=== PATIENT | male | born 1995 | race Caucasian/White ===

== ENCOUNTER 2025-05-06 18:22 | Emergency (ER) | payer BC, SELFPAY ==
--- OUTSIDE RECORDS SUMMARY | 2025-04-23 18:44 | XMS_ITS | Encounter Summary ---
Author Organization [facility] Address [address] [place] [id number] Care Team Providers Care Commercial Appraiser Name Role Phone Provider, No Known Primary Care Provider Unavail able Reason for Visit * Reason Comments Post-op Problem Encounter Details Date Type Department Care Team (Late st Contact Info) Description 04/23/2025 7:44 PM EDT - 04/23/2025 10:33 PM EDT Emergency [facility] EMERGENCY DEPARTMENT [address] [facility] [address] Ottoniel Nava MD [address] [place], [place] [id number] Right testicular pain (Primary Dx); Scrotal swelling; History of vasectomy; Bilateral hydrocele; Right varicocele Discharge Disposition: Home or Self Care Social History Tobacco Use Types Packs/Day Years Used Date Smoking Tobacco: Never Assessed Abuse Screen Answer Date Recorded Feels Unsafe at Home or Work/School no 04/23/2025 Feels Threatened by Someone no 04/02 Does Anyone Try to Keep You From Having Contact with Others or Doing Things Outside Your Home? no 04/23/2025 Physical Signs of Abuse Present no 04/23/2025 Sex and Gender Information Value Date Recorded Sex Assigned at Not on file Legal Sex Male 7:41 PM EDT Gender Identity Not on file Sexual Orientation Not on file documented as of this encounter Last Filed Vital Signs Vital Sign Reading Time Taken Comments Blood Pressure 130/98 04/23/2025 10:19 PM EDT Pulse 88 04/23/2025 10:19 PM EDT Temperature 36.5 C (97.7 F) 04/23/2025 7:43 PM EDT Respiratory Rate 16 04/23/2025 10:19 PM EDT Oxygen Saturation 94% 04/23/2025 7:43 PM EDT Inhaled Oxygen Concentration - - Weight 88.5 kg (195 lb) 04/23/2025 7:43 PM EDT Height 180.3 cm (5' 11 ) 04/23/2025 7:43 PM EDT Body Mass Index 27.2 04/23/2025 7:43 PM EDT documented in this encounter Functional Status * Calculated C-SSRS Risk Score (Lifetime/Recent) Answer Date of Assessment Author No Risk Indicated 04/23/2025 7:43 PM EDT Karol Johnson RN * [place] Suicide Severity Rating Scale (Screener/Recent Self-Report) Question Answer Date of Assessment Author 1. Wish to be (Past 1 Month) No 04/23/2025 7:43 PM EDT Supriya Grant RN 2. Non-Specific Active Suici rey Thoughts (Past 1 Month) No 04/23/2025 7:43 PM EDT Karol Grant RN 6. Suicidal Behavior (Lifetime) No 7:43 PM EDT Karol Grant RN documented as of this encounter Discharge Instructions * Discharge Instructions* Makayla Pickens PA-C - 04/23/2025 10:18 PM EDT ER evaluation was reassuring. CBC and chemistries were within normal limits and urinalysis revealedno evidence of infectious process. Testicular ultrasound revealed no concerns of postoperative infection after recent vasectomy. Patient did have small bilateral hydroceles and a right sided varicocele. We printed off information regarding these findings, which is unrelated to recent vasectomy. Continue to wear briefs and cool compresses as needed. Recommend resting the next day or 2 and no extensive standing or walking. Contact Dr. Madrigal's office for close follow-up. Continue with ibuprofen and [place] as prescribed. Return to the ER if worsening symptoms. * Attachments The following attachments cannot be sent through Care Everywhere. * Varicocele (Barbadian) * Fluid Build-Up in the Scrotum (Hydrocele) in Adults: What to Know (Barbadian) documented in this encounter ED Notes * Makayla Pickens PA-C - 04/23/2025 8:01 PM EDT EMERGENCY DEPARTMENT ENCOUNTER Name: Garett Albarado Date of encounter: 04/23/2025 PCP: Provider, No Known : 1995 Room Number: 26SF/26 HARSHAL Provider Statement: Patient or patient field sales representative verbalized consent for the use of AmbientListening during the visit with Makayla Pickens PA-C for chart documentation. 04/23/2025 20:01 EDT Review of prior external notes (non-ED) -and- Review of prior external test results outside of thisencounter: No previous records in [facility] to review HPI: Historians: Patient, Spouse Garett Albarado is a 30 y.o. male who presents for evaluation of Pain/swelling to right testicle/scrotum after recent vasectomy per Dr. Madrigal 6 days ago. Patient says he had local anesthesia and had significant pain after the vasectomy. He says that he has been applying cool compresses and taking ibuprofen. He has only had 4-5 [place] 5 mg tablets. He continues to report right testicular/scrotal pain with some mild swelling. He feels a pulling sensation . He says that pain radiates up into his right groin. There has not been any fever, chills, myalgias, or nausea/vomiting. He denies any dysuria, urgency, or frequency. He states that he has been back to work for the last 3 days and he walks frequently throughout the day. 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 He reports that he is frustrated because he was not really given any instructions after his vasectomy. He has been wearing briefs anddoing all the things that he knows that he should do, but he is still having significant pain. He does not have any follow-up for vasectomy with Dr. Madrigal. He called his office several times today and did not hear back. He denies any significant past medical history. No other concerns at this time. Review of Systems Constitutional: Negative. Negative for activity change, appetite change, chills, fatigue and fever. Respiratory: Negative. Cardiovascular: Negative. Gastrointestinal: Positive for abdominal pain (Mild suprapubic discomfort on the right). Negative for diarrhea, nausea and vomiting. Genitourinary: Positive for scrotal swelling (Right sided) and testicular pain (Right sided pain after recent vasectomy). Negative for flank pain, frequency and urgency. 6 days postop from vas ectomy per Dr. Mares, urology. Patient reports persistent right sided scrotal pain with mild swelling. No induration, erythema, or warmth. No urinary changes. Musculoskeletal: Negative. Negative for back pain. Skin: Negative for color change and wound. No no confluent erythema or warmth to the right scrotum. Patient feels like it is swollen compared to the left scrotum. Neurological: Negative. All other systems reviewed and are negative. PAST MEDICAL HISTORY History reviewed. No pertinent past medical history. PAST SURGICAL HISTORY History reviewed. No pertinent surgical history. FAMILY HISTORY No family history on file. SOCIAL HISTORY Social History Socioeconomic History Marital status: ALLERGIES Allergies Allergen Reactions Percocet [Oxycodone-Acetaminophen] Hives PHYSICAL EXAM I have reviewed the triage vital signs and nursing notes. Physical Exam Vitals and nursing note reviewed. Constitutional: General: He is not in acute distress. Appearance: Normal appearance. He is not ill-appearing, toxic-appearing or diaphoretic. Comments: No acute distress. Nontoxic HENT: Head: Normocephalic and atraumatic. Nose: Nose normal. Mouth/Throat: Mouth: Mucous membranes are moist. Eyes: Extraocular Movements: Extraocular movements intact. Conjunctiva/sclera: Conjunctivae normal. Pupils: Pupils are equal, round, and reactive to light. Cardiovascular: Rate and Rhythm: Normal rate and regular rhythm. No extrasystoles are present. Pulses: Normal pulses. Heart sounds: Normal heart sounds. Comments: Regular rate and rhythm. No tachycardia or ectopy Pulmonary: Effort: Pulmonary effort is normal. Breath sounds: Normal breath sounds. Comments: Lungs are clear to auscultation bilaterally Abdominal: General: Bowel sounds are normal. There is no distension. Palpations: Abdomen is soft. Tenderness: There is abdominal tenderness in the suprapubic area. There is no right CVA tenderness,left CVA tenderness, guarding or rebound. Negative signs include Singh's sign, Rovsing's sign, McBurney's sign, psoas sign and obturator sign. Hernia: No hernia is present. There is no hernia in the right inguinal area. Comments: Abdomen soft without distention. Active bowel sounds in all 4 quadrants. Mild tenderness to right suprapubic area near the groin. No evidence of right inguinal hernia. See exam for details on right testicle and scrotal exam. Genitourinary: Testes: Right: Tenderness and swelling present. Mass not present. Epididymis: Right: Normal. Comments: Patient has tenderness to the right scrotum. I do not appreciate any swelling to the right scrotum as compared to the left. There is no induration or confluent erythema. I do see a small absorbable suture from recent vasectomy. Patient does not have any tenderness to the right epididymis.There is no right inguinal hernia. I do not see any concerning features on exam. Musculoskeletal: General: Normal range of motion. Cervical back: Neck supple. Right lower leg: No edema. Left lower leg: No edema. Skin: General: Skin is warm and dry. Comments: See exam for details. Neurological: General: No focal deficit present. Mental Status: He is alert and oriented to person, place, and time. Cranial Nerves: Cranial nerves 2-12 are intact. Sensory: Sensation is intact. Motor: Motor function is intact. Coordination: Coordination is intact. Comments: Neuro intact and nonfocal Psychiatric: Mood and Affect: Mood and affect normal. Speech: Speech normal. Behavior: Behavior is cooperative. Thought Content: Thought content normal. Cognition and Memory: Cognition and memory normal. Judgment: Judgment normal. Comments: Normal mood and affect Results LAB RESULTS Labs from Hospital Encounter 04/23/25 Comprehensive Metabolic Panel Specimen: Blood Result Value Ref Range Glucose 100 (H) 65 - 99 mg/dL BUN 11.6 6.0 - 20.0 mg/dL Creatinine 0.99 0.76 - 1.27 mg/dL Sodium 138 136 - 145 mmol/L Potassium 4.0 3.5 - 5.2 mmol/L Chloride 103 98 - 107 mmol/L CO2 25.1 22.0 - 29.0 mmol/L Calcium 9.1 8.6 - 10.5 mg/dL Total Protein 6.3 6.0 - 8.5 g/dL Albumin 4.1 3.5 - 5.2 g/dL ALT (SGPT) 58 (H) 1 - 41 U/L AST (SGOT) 41 (H) 1 - 40 U/L Alkaline Phosphatase 78 39 - 117 U/L Total Bilirubin 0.4 0.0 - 1.2 mg/dL Globulin 2.2 gm/dL A/G Ratio 1.9 g/dL BUN/Creatinine Ratio 11.7 7.0 - 25.0 Anion Gap 9.9 5.0 - 15.0 mmol/L eGFR 105.1 >60.0 mL/min/1.73 Urinalysis With Microscopic If Indicated (No Culture) - Urine, Clean Catch Specimen: Urine, Clean Catch Result Value Ref Range Color, UA Yellow Yellow, Straw Appearance, UA Clear Clear pH, UA 5.5 5.0 - 8.0 Specific [place], UA 1.020 1.005 - 1.030 Glucose, UA Negative Negative Ketones, UA Negative Negative Bilirubin, UA Negative Negative Blood, UA Negative Negative Protein, UA Negative Negative Leuk Esterase, UA Negative Negative Nitrite, UA Negative Negative Urobilinogen, UA 0.2 E.U./dL 0.2 - 1.0 E.U./dL CBC Auto Differential Specimen: Blood Result Value Ref Range WBC 6.74 3.40 - 10.80 10*3/mm3 RBC 4.75 4.14 - 5.80 10*6/mm3 Hemoglobin 15.4 13.0 - 17.7 g/dL Hematocrit 44.5 37.5 - 51.0 % MCV 93.7 79.0 - 97.0 fL MCH 32.4 26.6 - 33.0 pg MCHC 34.6 31.5 - 35.7 g/dL RDW 12.2 (L) 12.3 - 15.4 % RDW-SD 42.4 37.0 - 54.0 fl MPV 11.8 6.0 - 12.0 fL Platelets 143 140 - 450 10*3/mm3 Neutrophil % 58.8 42.7 - 76.0 % Lymphocyte % 34.3 19.6 - 45.3 % Monocyte % 5.2 5.0 - 12.0 % Eosinophil % 0.7 0.3 - 6.2 % Basophil % 0.4 0.0 - 1.5 % Immature Grans % 0.6 (H) 0.0 - 0.5 % Neutrophils, Absolute 3.96 1.70 - 7.00 10*3/mm3 Lymphocytes, Absolute 2.31 0.70 - 3.10 10*3/mm3 Monocytes, Absolute 0.35 0.10 - 0.90 10*3/mm3 Eosinophils, Absolute 0.05 0.00 - 0.40 10*3/mm3 Basophils, Absolute 0.03 0.00 - 0.20 10*3/mm3 Immature Grans, Absolute 0.04 0.00 - 0.05 10*3/mm3 nRBC 0.0 0.0 - 0.2 /100 WBC RADIOLOGY US Scrotum & Testicles with doppler Result Date: 04/23/2025 US SCROTUM AND TESTICLES WITH DOPPLER Date of Exam: 04/23/2025 8:15 PM EDT Indication: right testicular pain, swelling, s/p recent vasectomy. Comparison: No comparisons available. Technique: Multiplesonographic images of the scrotum were obtained in transverse and longitudinal planes. Grayscale and color Doppler duplex techniques were utilized. Doppler spectral analysis was performed. Findings: Right hemiscrotum: The testicle is homogeneous in echogenicity. Color flow does not appear unusual. There is a small hydrocele on this side. Epididymis does not appear unusual. A varicocele is suggested on this side. Left hemiscrotum: There is color flow to the testicle. The testicle is homogeneous no congestion density. There is a small hydrocele on this side. Epididymis does not appear unusual. Impression: Impression: 1.Small bilateral hydroceles. 2.Right varicocele suggested. Electronically Signed: Deniz Major MD 04/23/2025 9:36 PM EDT Workstation ID: [id number] ORDERS PLACED DURING THIS VISIT: Orders Placed This Encounter Procedures US Scrotum & Testicles with doppler Comprehensive Metabolic Panel Urinalysis With Microscopic If Indicated (No Culture) - Urine, Clean Catch CBC Auto Differential CBC & Differential MEDICATIONS GIVEN IN ER Medications HYDROcodone-acetaminophen (NORCO) 5-325 MG per tablet 1 tablet (1 tablet Oral Given 04/23/252020) ibuprofen (ADVIL,MOTRIN) tablet 600 mg (600 mg Oral Given 04/23/252020) PROCEDURES Procedures PROGRESS, DATA ANALYSIS, CONSULTS, AND MEDICAL DECISION MAKING All labs, radiology studies, and EKG's have been independently viewed and interpreted by me. Discussion below represents my analysis of pertinent findings related to patient's condition, differentialdiagnosis, treatment plan and final disposition. Differential Diagnoses include but is not limited to: Post-operative pain after vasectomy with increased activity, post-operative infection. ED Scoring Tools: ED Course: ED Course as of 04/23/25 2218 [place] Apr 23, [id number] Pt has been using cool compresses, Ibuprofen, [place] 5mg. Pt has only taken 4-5 [place] in the last [address] Madrigal's office today and couldn't get a response. [FC] 2213 Patient is afebrile. Blood pressure is mildly elevated at 130/104, which could be pain related. CBC and chemistries were essentially normal. ALT was 58 and AST was 41 but alk phos and total bilirubin were normal. Urinalysis revealed no microscopic blood or acute UTI. We proceeded with testicular ultrasound due to significant right testicular pain after recent vasectomy. Ultrasound showed small bilateral hydroceles and right varicocele suggested but there was good blood flow to both testicles and no concerning features. Epididymis did not appear abnormal bilaterally. Reviewed all diagnostic workup with Dr. Nava, ER attending physician. There are no concerning features on today's exam or with diagnostic workup. Recommend patient to continue to wear briefs and cool compresses as neededand recommend decreased walking for the next day or 2 and close recheck with Dr. Madrigal, urologist that performed recent vasectomy. [FC] ED Course User Index [FC] Makayla Pickens PA-C OF 22:18 EDT VITALS: BP - (!) 130/104 HR - 84 TEMP - 97.7 ??F (36.5 ??C) (Oral) O2 SATS - 94% DIAGNOSIS Final diagnoses: Right testicular pain Scrotal swelling History of vasectomy Bilateral hydrocele Right varicocele DISPOSITION ED Disposition ED Disposition Discharge Condition Stable Comment -- Please note that portions of this note were completed with a voice recognition program. Note Disclaimer: At [facility], we believe that sharing information builds trust and better relationships. You are receiving this note because you recently visited [facility]. It is possible you will see health information before a provider has talked with you about it. This kind of information can be easy to misunderstand. To help you fully understand what it means for your health, we urge you to discuss this note with your provider. Makayla Pickens PA-C 04/23/252217 Cosigned by Ottoniel Nava MD at 04/24/2025 11:36 AM EDT Associated attestation - Ottoniel Nava MD - 04/24/2025 11:36 AM EDT SUPERVISE: For this patient encounter, I reviewed the APC's documentation, treatment plan, and medical decision making. Ottoniel Nava MD 04/24/2025 11:36 EDT documented in this encounter Plan of Treatment Not on file documented as of this encounter Procedures Procedure Name Priority Date/Time Associated Diagnosis Comments US SCROTUM AND TESTICLES WITH DOPPLER STAT 04/23/2025 9:15 PM EDT URINALYSIS W/ MICROSCOPIC IF INDICATED (NO CULTURE) STAT 04/23/2025 9:10 PM EDT CBC WITH AUTO DIFFERENTIAL STAT 04/23/2025 8:20 PM EDT CBC AND DIFFERENTIAL STAT 04/23/2025 8:20 PM EDT COMPREHENSIVE METABOLIC PANEL STAT 04/23/2025 8:20 PM EDT documented in this encounter Results * US Scrotum & Testicles with doppler (04/23/2025 9:15 PM EDT) Anatomical Region Laterality Modality Body, Testes Ultrasound 04/23/2025 9:30 PM EDT Impressions 04/23/2025 9:36 PM EDT Impression: 1.Small bilateral hydroceles. 2.Right varicocele suggested. Electronically Signed: Deniz Major MD 04/23/2025 9:36 PM EDT Workstation ID: [id number] Narrative 04/23/2025 9:36 PM EDT US SCROTUM AND TESTICLES WITH DOPPLER Date of Exam: 04/23/2025 8:15 PM EDT Indication: right testicular pain, swelling, s/p recent vasectomy. Comparison: No comparisons available. Technique: Multiple sonographic images of the scrotum were obtained in transverse and longitudinal planes. Grayscale and color Doppler duplex techniques were utilized. Doppler spectral analysis was performed. Findings: Right hemiscrotum: The testicle is homogeneous in echogenicity. Color flow does not appear unusual. There is a small hydrocele on this side. Epididymis does not appear unusual. A varicocele is suggested on this side. Left hemiscrotum: There is color flow to the testicle. The testicle is homogeneous no congestion density. There is a small hydrocele on this side. Epididymis does not appear unusual. Procedure Note Deniz Major MD - 04/23/2025 US SCROTUM AND TESTICLES WITH DOPPLER Date of Exam: 04/23/2025 8:15 PM EDT Indication: right testicular pain, swelling, s/p recent vasectomy. Comparison: No comparisons available. Technique: Multiple sonographic images of the scrotum were obtained intransverse and longitudinal planes. Grayscale and color Doppler duplextechniques were utilized. Doppler spectral analysis was performed. Findings: Right hemiscrotum: The testicle is homogeneous in echogenicity. Color flowdoes not appear unusual. There is a small hydrocele on this side.Epididymis does not appear unusual. A varicocele is suggested on thisside. Left hemiscrotum: There is color flow to the testicle. The testicle ishomogeneous no congestion density. There is a small hydrocele on thisside. Epididymis does not appear unusual. IMPRESSION: Impression: 1.Small bilateral hydroceles. 2.Right varicocele suggested. Electronically Signed: Deniz Major MD 04/23/2025 9:36 PM EDT Workstation ID: [id number] us Ottoniel Nava MD [facility] [place] US ORDERABLES Final Resu lt * Urinalysis With Microscopic If Indicated (No Culture) - Urine, Clean Catch (04/23/2025 9:10 PM EDT) Color, UA Yellow Yellow, Straw 04/23/2025 9:29 PM EDT [facility] Appearance, UA Clear Clear 04/23/2025 9:29 PM EDT [facility] pH, UA 5.5 5.0 - 8.0 04/23/2025 9:29 PM EDT [facility] Specific [place], UA 1.020 1.005 - 1.030 04/23/2025 9:29 PM EDT [facility] Glucose, UA Negative Negative 04/23/2025 9:29 PM EDT [facility] Ketones, UA Negative Negative 04/23/2025 9:29 PM EDT [facility] Bilirubin, UA Negative Negative 04/23/2025 9:29 PM EDT [facility] Blood, UA Negative Negative 04/23/2025 9:29 PM EDT [facility] Protein, UA Negative Negative 04/23/2025 9:29 PM EDT [facility] Leuk Esterase, UA Negative Negative 04/23/2025 9:29 PM EDT [facility] Nitrite, UA Negative Negative 04/23/2025 9:29 PM EDT [facility] Urobilinogen, UA 0.2 E.U./dL 0.2 - 1.0 E.U./dL 04/23/2025 9:29 PM EDT [facility] Urine Urine specimen obtained by clean catch procedure / Unknown Collection / Unknown 04/23/2025 9:10 PM EDT 04/23/2025 9:22 PM EDT Narrative [facility] - 04/23/2025 9:29 PM EDT Urine microscopic not indicated. us Ottoniel Nava MD URINE ORDERABLES Final Resul t [facility]
[address] [place] [address], * (ABNORMAL) CBC Auto Differential (04/23/2025 8:20 PM EDT) [facility] WBC 6.74 3.40 - 10.80 10*3/mm3 04/23/2025 8:33 PM EDT [facility] RBC 4.75 4.14 - 5.80 10*6/mm3 04/23/2025 8:33 PM EDT [facility] Hemoglobin 15.4 13.0 - 17.7 g/dL 04/23/2025 8:33 PM EDT [facility] Hematocrit 44.5 37.5 - 51.0 % 04/23/2025 8:33 PM EDT [facility] MCV 93.7 79.0 - 97.0 fL 04/23/2025 8:33 PM EDT [facility] MCH 32.4 26.6 - 33.0 pg 04/23/2025 8:33 PM EDT [facility] MCHC 34.6 31.5 - 35.7 g/dL 04/23/2025 8:33 PM EDT [facility] RDW 12.2(L) 12.3 - 15.4 % 04/23/2025 8:33 PM EDT [facility] RDW-SD 42.4 37.0 - 54.0 fl 04/23/2025 8:33 PM EDT [facility] MPV 11.8 6.0 - 12.0 fL 04/23/2025 8:33 PM EDT [facility] Platelets 143 140 - 450 10*3/mm3 04/23/2025 8:33 PM EDT [facility] Neutrophil % 58.8 42.7 - 76.0 % 04/23/2025 8:33 PM EDT [facility] Lymphocyte % 34.3 19.6 - 45.3 % 04/23/2025 8:33 PM EDT [facility] Monocyte % 5.2 5.0 - 12.0 % 04/23/2025 8:33 PM EDT [facility] Eosinophil % 0.7 0.3 - 6.2 % 04/23/2025 8:[facility] [address] [facility] Basophil % 0.4 0.0 - 1.5 % 04/23/2025 8:33 PM EDT [facility] Immature Grans % 0.6(H) 0.0 - 0.5 % 04/23/2025 8:33 PM EDT [facility] Neutrophils, Absolute 3.96 1.70 - 7.00 10*3/mm3 04/23/2025 8:33 PM EDT [facility] Lymphocytes, Absolute 2.31 0.70 - 3.10 10*3/mm3 04/23/2025 8:33 PM EDT [facility] Monocytes, Absolute 0.35 0.10 - 0.90 10*3/mm3 04/23/2025 8:33 PM EDT [facility] Eosinophils, Absolute 0.05 0.00 - 0.40 10*3/mm3 04/23/2025 8:33 PM EDT [facility] Basophils, Absolute 0.03 0.00 - 0.20 10*3/mm3 04/23/2025 8:33 PM EDT [facility] Immature Grans, Absolute 0.04 0.00 - 0.05 10*3/mm3 04/23/2025 8:33 PM EDT [facility] nRBC 0.0 0.0 - 0.2 /100 WBC 04/23/2025 8:33 PM EDT [facility] Blood Venipuncture / Unknown 04/23/2025 8:20 PM EDT 04/23/2025 8:30 PM EDT us Ottoniel Nava MD LAB BLOOD ORDERABLES Final R esult [facility]
[address] [place] [address], * (ABNORMAL) Comprehensive Metabolic Panel (04/23/2025 8:20 PM EDT) Glucose 100(H) 65 - 99 mg/dL 04/23/2025 8:57 PM EDT [facility] BUN 11.6 6.0 - 20.0 mg/dL 04/23/2025 8:57 PM T [facility] Creatinine 0.99 0.76 - 1.27 mg/dL 04/23/2025 8:57 PM T [facility] Sodium 138 136 - 145 mmol/L 04/23/2025 8:57 PM T [facility] Potassium 4.0 3.5 - 5.2 mmol/L 04/23/2025 8:57 PM T [facility] Comment:Specimen hemolyzed. Result may be falsely elevated. Chloride 103 98 - 107 mmol/L 04/23/2025 8:57 PM T [facility] CO2 25.1 22.0 - 29.0 mmol/L 04/23/2025 8:57 PM [facility] Calcium 9.1 8.6 - 10.5 mg/dL 04/23/2025 8:57 PM [facility] Total Protein 6.3 6.0 - 8.5 g/dL 04/23/2025 8:57 PM [facility] Albumin 4.1 3.5 - 5.2 g/dL 04/23/2025 8:57 PM [facility] ALT (SGPT) 58(H) 1 - 41 U/L 04/23/2025 8:57 PM [facility] AST (SGOT) 41(H) 1 - 40 U/L 04/23/2025 8:57 PM T [facility] Comment:Specimen hemolyzed. Result may be falsely elevated. Alkaline Phosphatase 78 39 - 117 U/L 04/23/2025 8:57 PM T [facility] Total Bilirubin 0.4 0.0 - 1.2 mg/dL 04/23/2025 8:57 PM [facility] Globulin 2.2 gm/dL 04/23/2025 8:57 PM [facility] Comment:Calculated Result A/G Ratio 1.9 g/dL 04/23/2025 8:57 PM EDT [facility] BUN/Creatinine Ratio 11.7 7.0 - 25.0 04/23/2025 8:57 PM EDT [facility] Anion Gap 9.9 5.0 - 15.0 mmol/L 04/23/2025 8:57 PM EDT [facility] eGFR 105.1 >60.0 mL/min/1.7 3 04/23/2025 8:57 PM EDT [facility] Blood Venipuncture / Unknown 04/23/2025 8:20 PM EDT 04/23/2025 8:30 PM EDT [facility] - 04/23/2025 8:57 PM EDT GFR Categories in Chronic Kidney Disease (CKD) GFR Category GFR (mL/min/1.73) Interpretation G1 90 or greater Normal or high (1) G2 60-89 Mild decrease (1) G3a 45-59 Mild to moderate decrease G3b 30-44 Moderate to severe decrease G4 15-29 Severe decrease G5 14 or less Kidney failure (1)In the absence of evidence of kidney disease, neither GFR category G1 or G2 fulfill the criteria for CKD. eGFR calculation 2020 CKD-EPI creatinine equation, which does not include race as a factor Ottoniel Nava MD LAB BLOOD ORDERABLES Final R esult [facility]
[address] [place] [address], documented in this encounter Visit Diagnoses Diagnosis Right testicular pain- Primary Scrotal swelling Edema of male genital organs History of vasectomy Vasectomy status Bilateral hydrocele Unspecified hydrocele Right varicocele Scrotal varices documented in this encounter Administered Medications Inactive Administered Medications - up to 3 most recent administrations Medication Order MAR Action Action Date Dose Rate Site HYDROcodone-acetaminophen (NORCO) 5-325 MG per tablet 1 tablet 1 tablet, Oral, Once, On Vita 04/23/25 at 2024, For 1 dose, Based on patient request - if ordered for moderate or severe pain, provider allows for administration of a medication prescribed for a lower pain scale. [JAMES] Do not exceed 4 grams of acetaminophen in a 24 hr period. Max dose of 2gm for AST/ALT greater than 120 units/L If given for pain, use the following pain scale: Mild Pain = Pain Score of 1-3, CPOT 1-2 Moderate Pain = Pain Score of 4-6, CPOT 3-4 Severe Pain = Pain Score of 7-10, CPOT 5-8 Given 04/23/2025 8:21 PM EDT 1 tablet ibuprofen (ADVIL,MOTRIN) tablet 600 mg 600 mg, Oral, Once, On Vita 04/23/25 at 2024, For 1 dose, Based on patient request - if ordered for moderate or severe pain, provider allows for administration of a medication prescribed for a lower pain scale. Mucous membrane irritant. Do not crush or chew tablet or capsule unless administered through a feeding tube. If given for pain, use the following pain scale: Mild Pain = Pain Score of 1-3, CPOT 1-2 Moderate Pain = Pain Score of 4-6, CPOT 3-4 Severe Pain = Pain Score of 7-10, CPOT 5-8 Given 04/23/2025 8:21 PM EDT 600 mg documented in this encounter Active and Recently Administered Medications Times are shown in EDT. Scheduled Medication Order 04/21/2025 04/22/2025 04/23/2025 HYDROcodone-acetaminophen (NORCO) 5-325 MG per tablet 1 tablet (COMPLETED) 1 tablet, Oral, Once, On Vita 04/23/25 at 2024, For 1 dose, Based on patient request - if ordered for moderate or severe pain, provider allows for administration of a medication prescribed for a lower pain scale. [JAMES] Do not exceed 4 grams of acetaminophen in a 24 hr period. Max dose of 2gm for AST/ALT greater than 120 units/L If given for pain, use the following pain scale: Mild Pain = Pain Score of 1-3, CPOT 1-2 Moderate Pain = Pain Score of 4-6, CPOT 3-4 Severe Pain = Pain Score of 7-10, CPOT 5-8 2020 (Given - Provid er: Adriana Leyva RN) ibuprofen (ADVIL,MOTRIN) tablet 600 mg (COMPLETED) 600 mg, Oral, Once, On Vita 04/23/25 at 2024, For 1 dose, Based on patient request - if ordered for moderate or severe pain, provider allows for administration of a medication prescribed for a lower pain scale. Mucous membrane irritant. Do not crush or chew tablet or capsule unless administered through a feeding tube. If given for pain, use the following pain scale: Mild Pain = Pain Score of 1-3, CPOT 1-2 Moderate Pain = Pain Score of 4-6, CPOT 3-4 Severe Pain = Pain Score of 7-10, CPOT 5-8 2020 (Given - Provid er: Adriana Leyva RN) documented in this encounter Care Teams Commercial Appraiser Relationship Specialty Start Date End Date Provider, [place] [address] PCP - General 04/23/25 documented as of this encounter
[2025-05-06 18:44] VITALS: BP 147/100; PULSE 86; RESP 18; TEMP 36.8; O2SAT 96; BMI 27.1
--- NOTE | 2025-05-06 18:49 | ECG_ITS ---
APPROVED REPORT Exam: Resting ECG HR:79 bpm ECG Measurements Heart Rate 79 AXES LA 153 P 46 QRSd 97 QRS 64 QT 356 T 51 QTc 390 Conclusion SINUS RHYTHM NORMAL ECG UNCONFIRMED REPORT Normal sinus rhythm. No ST elevation or depression. QTc normal at 390 Electronically signed by : SOURAV SKINNER, 05/07/2025 20:14:39
--- NOTE | 2025-05-06 18:54 | XR_ITS ---
PROCEDURE INFORMATION: Exam: XR Left Shoulder Exam date and time: 05/06/2025 6:58 PM Age: 30 years old Clinical indication: Pain; Shoulder; Left; Additional info: Possible injury, pain stemming into neck, no HX of surgeries TECHNIQUE: Imaging protocol: Radiologic exam of the left shoulder. Views: 2 or more views. COMPARISON: No relevant prior studies available. FINDINGS: Bones/joints: Osseous alignment is normal. No acute fracture. No significant arthritic change. Soft tissues: Normal. IMPRESSION: Negative left shoulder
[2025-05-06 19:07] LABS: Hematocrit 44.3 % (42.0-52.0); Hemoglobin 15.3 g/dL (14.1-18.0); Immature Granulocytes % 0.5 %; Mean Corpuscular HGB Conc 34.5 g/dL (31.8-35.4); Mean Corpuscular Hemoglobin 32.6 pg (27.0-31.2); Mean Corpuscular Volume 94.3 fl (80-94); Nucleated Red Blood Cells % 0 %; Platelet Count 162 K/mm3 (142-424); Red Blood Count 4.70 M/mm3 (4.60-6.20); Red Cell Distribution Width-SD 42.0 fL; White Blood Count 7.7 K/mm3 (4.8-10.8)
--- OUTSIDE RECORDS SUMMARY | 2025-05-06 19:10 | XMS_ITS | Clinical Summary ---
Author Organization [facility] Address [address] [place] [address] Care Team Providers Care Lead Net Software Developer Name Role Phone Provider, No Known Primary Care Provider Unavail able Allergies Active Allergy Reactions Criticality Noted Date Comments Oxycodone-Acetaminophen Hives 04/23/2025 Medications No known medications Encounters Date Type Department Care Team Description 04/23/2025 7:44 PM EDT - 04/23/2025 10:33 PM EDT Emergency [facility] [address] [place] [phone] Ottoniel Nava MD Right testicular pain (Primary Dx); Scrotal swelling; History of vasectomy; Bilateral hydrocele; Right varicocele Discharge Disposition: Home or Self Care 04/23/2025 Travel from Last 3 Months Social History Tobacco Use Types Packs/Day Years [...] on file Sexual Orientation Not on file Last Filed Vital Signs Vital Sign Reading [...] Mass Index 27.2 04/23/2025 7:43 PM EDT Plan of Treatment Health Maintenance Due Date Last Done Comments ANNUAL PHYSICAL 1995 HEPATITIS C SCREENING 1995 INFLUENZA VACCINE 01/30/2025 TDAP/TD VACCINES (2 - Tdap) 08/15/2032 08/15/2022 Pneumococcal Vaccine 0-49 Aged Out No longer eligible based on patient's age to complete this topic Procedures Procedure Name Priority Date/Time Associated Diagnosis Comments US SCROTUM AND TESTICLES WITH DOPPLER STAT 04/23/2025 9:15 PM EDT URINALYSIS W/ MICROSCOPIC IF INDICATED (NO CULTURE) STAT 04/23/2025 9:10 PM EDT CBC AND DIFFERENTIAL STAT 04/23/2025 8:20 PM EDT CBC WITH AUTO DIFFERENTIAL STAT 04/23/2025 8:20 PM EDT COMPREHENSIVE METABOLIC PANEL STAT 04/23/2025 8:20 PM EDT from Last 3 Months Results * US Scrotum & Testicles with doppler (04/23/2025 9:15 PM EDT) Anatomical Region Laterality Modality Body, Testes Ultrasound 04/23/2025 9:30 PM EDT Impressions 04/23/2025 9:36 PM EDT Impression: 1.Small bilateral hydroceles. 2.Right varicocele suggested. Electronically Signed: Deniz Major MD 04/23/2025 9:36 PM EDT Workstation ID: [id number] Narrative 04/23/2025 9:36 PM EDT US SCROTUM [...] MD 04/23/2025 9:36 PM EDT Workstation ID: [id number] us Ottoniel Nava MD [facility] US ORDERABLES Final Resu lt * Urinalysis With Microscopic If Indicated (No Culture) - Urine, Clean Catch (04/23/2025 9:10 PM EDT) Color, UA Yellow Yellow, Straw 04/23/2025 9:29 PM EDT [facility] Appearance, UA Clear Clear 04/23/2025 9:29 PM EDT [facility] pH, UA 5.5 5.0 - 8.0 04/23/2025 9:29 PM EDT [facility] Specific [place], UA 1.020 1.005 - 1.030 04/23/2025 9:29 PM EDT [facility] Glucose, UA Negative Negative 04/23/2025 9:29 PM EDT [facility] Ketones, UA Negative Negative 04/23/2025 9:29 PM EDT [facility] Bilirubin, UA Negative Negative 04/23/2025 9:29 PM EDT [facility] Blood, UA Negative Negative 04/23/2025 9:29 PM EDT [facility] Protein, UA Negative Negative 04/23/2025 9:29 PM EDT [facility] Leuk Esterase, UA Negative Negative 04/23/2025 9:29 PM EDT [facility] Nitrite, UA Negative Negative 04/23/2025 9:29 PM EDT [facility] Urobilinogen, UA 0.2 E.U./dL 0.2 - 1.0 E.U./dL 04/23/2025 9:29 PM EDT [facility] Urine Urine specimen obtained by clean catch procedure / Unknown Collection / Unknown 04/23/2025 9:10 PM EDT 04/23/2025 9:22 PM EDT Narrative [facility] - 04/23/2025 9:29 PM EDT Urine microscopic not indicated. us Ottoniel Nava MD URINE ORDERABLES Final Resul t [facility]
[address] [place] [address], * (ABNORMAL) CBC Auto Differential (04/23/2025 8:20 PM EDT) WBC 6.74 3.40 - 10.80 10*3/mm3 04/23/2025 8:33 PM EDT [facility] RBC 4.75 4.14 - 5.80 10*6/mm3 04/23/2025 8:33 PM EDT [facility] Hemoglobin 15.4 13.0 - 17.7 g/dL 04/23/2025 8:33 PM EDT [facility] Hematocrit 44.5 37.5 - 51.0 % 04/23/2025 8:33 PM EDT [facility] MCV 93.7 79.0 - 97.0 fL 04/23/2025 8:33 PM EDT [facility] MCH 32.4 26.6 - 33.0 pg 04/23/2025 8:33 PM EDT [facility] MCHC 34.6 31.5 - 35.7 g/dL 04/23/2025 8:33 PM EDT [facility] RDW 12.2(L) 12.3 - 15.4 % 04/23/2025 8:33 PM EDT [facility] RDW-SD 42.4 37.0 - 54.0 fl 04/23/2025 8:33 PM EDT [facility] MPV 11.8 6.0 - 12.0 fL 04/23/2025 8:33 PM EDT [facility] Platelets 143 140 - 450 10*3/mm3 04/23/2025 8:33 PM EDT [facility] Neutrophil % 58.8 42.7 - 76.0 % 04/23/2025 8:33 PM EDT [facility] Lymphocyte % 34.3 19.6 - 45.3 % 04/23/2025 8:33 PM EDT [facility] Monocyte % 5.2 5.0 - 12.0 % 04/23/2025 8:33 PM EDT [facility] Eosinophil % 0.7 0.3 - 6.2 % 04/23/2025 8:33 PM EDT [facility] Basophil % 0.4 0.0 - 1.5 % 04/23/2025 8:33 PM EDT [facility] Immature Grans % 0.6(H) 0.0 - 0.5 % 04/23/2025 8:33 PM EDT [facility] Neutrophils, Absolute 3.96 1.70 - 7.00 10*3/mm3 04/23/2025 8:33 PM EDT [facility] Lymphocytes, Absolute 2.31 0.70 - 3.10 10*3/mm3 04/23/2025 8:33 PM EDT [facility] Monocytes, Absolute 0.35 0.10 - 0.90 10*3/mm3 04/23/2025 8:33 PM EDT [facility] Eosinophils, Absolute 0.05 0.00 - 0.40 10*3/mm3 04/23/2025 8:33 PM EDT [facility] Basophils, Absolute 0.03 0.00 - 0.20 10*3/mm3 04/23/2025 8:33 PM EDT [facility] Immature Grans, Absolute 0.04 0.00 - 0.05 10*3/mm3 04/23/2025 8:33 PM EDT [facility] nRBC 0.0 0.0 - 0.2 /100 WBC 04/23/2025 8:33 PM EDT [facility] Blood Venipuncture / Unknown 04/23/2025 8:20 PM EDT 04/23/2025 8:30 PM EDT us Ottoniel Nava MD LAB BLOOD ORDERABLES Final R esult [facility]
[address] [place] [address], * (ABNORMAL) Comprehensive Metabolic Panel (04/23/2025 8:20 PM EDT) [facility] Glucose 100(H) 65 - 99 mg/dL 04/23/2025 8:57 PM EDT [facility] BUN 11.6 6.0 - 20.0 mg/dL 04/23/2025 8:57 PM EDT [facility] Creatinine 0.99 0.76 - 1.27 mg/dL 04/23/2025 8:57 PM T [facility] Sodium 138 136 - 145 mmol/L 04/23/2025 8:57 PM T [facility] Potassium 4.0 3.5 - 5.2 mmol/L 04/23/2025 8:57 PM T [facility] Comment:Specimen hemolyzed. Result may be falsely elevated. Chloride 103 98 - 107 mmol/L 04/23/2025 8:57 PM T [facility] CO2 25.1 22.0 - 29.0 mmol/L 04/23/2025 8:57 PM T [facility] Calcium 9.1 8.6 - 10.5 mg/dL 04/23/2025 8:57 PM [facility] Total Protein 6.3 6.0 - 8.5 g/dL 04/23/2025 8:57 PM [facility] Albumin 4.1 3.5 - 5.2 g/dL 04/23/2025 8:57 PM [facility] ALT (SGPT) 58(H) 1 - 41 U/L 04/23/2025 8:57 PM [facility] AST (SGOT) 41(H) 1 - 40 U/L 04/23/2025 8:57 PM T [facility] Comment:Specimen hemolyzed. Result may be falsely elevated. Alkaline Phosphatase 78 39 - 117 U/L 04/23/2025 8:57 PM T [facility] Total Bilirubin 0.4 0.0 - 1.2 mg/dL 04/23/2025 8:57 PM T [facility] Globulin 2.2 gm/dL 04/23/2025 8:57 PM [facility] Comment:Calculated Result A/G Ratio 1.9 g/dL 04/23/2025 8:57 PM T [facility] BUN/Creatinine Ratio 11.7 7.0 - 25.0 04/23/2025 8:57 PM EDT [facility] Anion Gap 9.9 5.0 - 15.0 mmol/L 04/23/2025 8:57 PM EDT [facility] eGFR 105.1 >60.0 mL/min/1.7 3 04/23/2025 8:57 PM EDT [facility] Blood Venipuncture / Unknown 04/23/2025 8:20 PM EDT 04/23/2025 8:30 PM EDT Narrative [facility] - 04/23/2025 8:57 PM EDT GFR [...] does not include race as a factor us Ottoniel Nava MD LAB BLOOD ORDERABLES Final R esult [facility]
[address] [place] [address], from Last 3 Months Insurance [facility] PPO Care Teams Lead Net Software Developer Relationship Specialty Start Date End Date Provider, [place] [address] PCP - General 04/23/25
--- OUTSIDE RECORDS SUMMARY | 2025-05-06 19:10 | XMS_ITS | Encounter Summary ---
Author Organization [facility] Address [address] [place] [address] Care Team Providers Care Manager Payer Name Role Phone Provider, No Known Primary Care Provider Unavail able Encounter Details Date Type Department Care Team (Latest Contact Info) Description 04/23/2025 Travel Social History Tobacco Use Types Packs/Day Years [...] on file documented as of this encounter Functional Status * Calculated C-SSRS Risk Score (Lifetime/Recent) Answer Date of Assessment Author No Risk Indicated 04/23/2025 7:43 PM EDT Karol Johnson RN * [place] Suicide Severity Rating Scale (Screener/Recent Self-Report) Question Answer Date of Assessment Author 1. Wish to be (Past 1 Month) No 04/23/2025 7:43 PM EDT Supriya Grant RN 2. Non-Specific Active Suici rey Thoughts (Past 1 Month) No 04/23/2025 7:43 PM EDT Karol Grant RN 6. Suicidal Behavior (Lifetime) No 7:43 PM EDT Karol Grant RN documented as of this encounter Plan of Treatment Not on file documented as of this encounter Visit Diagnoses Not on filedocumented in this encounter Care Teams Manager Payer Relationship Specialty Start Date End Date Provider, No Known [place] [phone] PCP - General 04/23/25 documented as of this encounter
[2025-05-06 19:16] LABS: Alanine Aminotransferase 83 U/L (12-78); Albumin Level 4.2 g/dl (3.5-5.0); Albumin/Globulin Ratio 1.4 (1.1-1.8); Alkaline Phosphatase 80 U/L (38-126); Anion Gap 10.6 mEq/L (5-15); Aspartate Amino Transferase 49 U/L (17-59); Bilirubin,Total 0.6 mg/dl (0.2-1.3); Blood Urea Nitrogen 15 mg/dl (9-20); Calcium 9.5 mg/dl (8.4-10.2); Carbon Dioxide 26 mmol/L (22.0-30.0); Chloride 106 mmol/L (98-107); Creatinine Clearance Estimated 123 mL/min (50-200); Creatinine,Serum 1.10 mg/dl (0.66-1.25); Estimated Glomerular Filt Rate 79 ml/min (>60); GFR (African American) 95 ML/MIN (>60); Globulin 3.1 g/dL (1.3-3.2); Glucose 93 mg/dl (74-100); Potassium 3.6 mmoL/L (3.5-5.1); Sodium 139 mmol/L (136-145); Total Protein,Serum 7.3 g/dl (6.3-8.2)
[2025-05-06 19:29] LABS: Troponin I < 0.01 ng/ml (0.00-0.034)
[2025-05-06 19:34] LABS: Microscopic, Urine URINE MICROSCOPIC (MICROSCOPIC)
[2025-05-06 19:39] LABS: Bilirubin,Urine Negative (Negative); Color,Urine YELLOW (Yellow); Glucose,Urine (UA) Negative (Negative); Ketones,Urine TRACE (Negative); Leukocyte Esterase,Urine Negative (Negative); PH,Urine 6.0 (5.0-8.5); Protein,Urine Negative (Negative); Specific Gravity, Urine 1.025 (1.005-1.030); Urobilinogen,Urine 0.2 EU/dl (0.2)
[2025-05-06 20:11] LABS: Bacteria,Urine Trace /lpf
--- NOTE | 2025-05-06 20:16 | ED_ITS ---
Discharge Plan Disposition Patient Disposition: Home, Self-Care Prescriptions Prescriptions: New methocarbamol 750 mg tablet 750 mg PO TID PRN (Reason: muscle spasm) Qty: 30 0RF lidocaine 5 % adhesive patch,medicated 1 patch topical DAILY Qty: 15 0RF Rx Instructions: leave on most painful area for up to 12 hrs Referrals Follow up/Referrals: Provider,Referral, MD [Primary Care Provider, Medical] - See instructions Activity Restrictions/Add. Instructions Additional Instructions/Restrictions: I encourage you to follow-up with one of the primary care providers listed for you. You likely have a strain in the muscles of your neck and possibly pinched nerve. I encourage you to take ibuprofen every 6 hours as needed as well as the muscle relaxer and lidocaine patches. If you develop any new or worsening symptoms, or if you become concerned for your help for any reason, return to the emergency department for evaluation. Clinical Impressions Clinical Impression: Neck and shoulder pain Print Language Print Language: Lao Discharge ED Provider: Peter Grullon General Adult HPI General Chief complaint: PAIN Stated complaint: left shoulder and neck pain Time Seen by Provider: 05/06/25 20:04 Mode of Arrival: Ambulatory Source of Information: Patient and Spouse Description of Symptoms (Recalled from ER Triage Doc. by RN): deep presents for left shoulder pain that staretd 2 days ago. patient also has experienced radiating pain up his neck adn down him left arm as well as tingling. deep states its only his shoulder and not his chest. History of Present Illness HPI narrative: Garett Albarado is a 30y male with no significant past medical history who presents to the emergency department for 2 days of pain on the left side of his neck radiating down his arm. Patient states that the pain is only in his shoulder and in his arm. He denies any shortness of breath. He denies any cardiac history. He states that turning his neck a certain way makes the pain worse. He has been trying ibuprofen without relief. Related Data Previous Rx's ?Medication ?Instructions ?Recorded lidocaine 5 % topical patch 1 patch topical DAILY #15 ea 05/06/25 methocarbamol 750 mg tablet 750 mg PO TID PRN muscle s pasm #30 05/06/25 tabs Allergies Allergy/AdvReac Type Severity Reaction Status Date / Time acetaminophen (From Percocet) Allergy Hives Verified 05/06/25 18:52 oxycodone (From Percocet) Allergy Hives Verified 05/06/25 18:52 [facility] Disclaimer: The information contained in this section may have been updated after the patient was seen, as this information can be updated by other users. Social History Smoking Status: Former smoker alcohol intake: never current occupational status: employed Travel in the last 8 weeks?: None ROS Obtained: Yes Systems reviewed as appropriate & no additional complaints except as documented Physical Exam General General appearance: alert and in no apparent distress Head Head exam: atraumatic Eye Eye exam: Present normal appearance ENT ENT exam: Present normal external ear exam Neck Neck exam: Present full ROM Chest Chest inspection: Present symmetric chest wall rise Respiratory Respiratory exam: Present normal lung sounds bilaterally; Absent respiratory distress, wheezes or stridor Cardiovascular Cardiovascular exam: Present regular rate and normal rhythm Abdominal Exam Abdominal exam: Present soft; Absent tenderness or guarding exam: Present deferred Extremities Exam Extremities exam: Present normal inspection and other (LUE: tenderness over the posterior shoulder, anterior sholder and AC joint without deformity. No clavicle deformity or tenderness. Mild pain with left sided empty can testing.) Back Exam Back exam: Present normal inspection; Absent vertebral tenderness (no midline cervical spine tenderness) Neurological Exam Neurological exam: Present alert and oriented X3 Psychiatric Psychiatric exam: Present normal affect Skin Skin exam: Present warm and dry Medical Decision Making Medical Records Screening: Per USPSTF and CDC recommendations, given the prevalence of disease in our region, it is our hospital?s policy to screen for HIV and viral Hepatitis for all patients aged 18 and over and those with ongoing risk factors. Lion Inquiry Pt receiving controlled substance: No Vital Signs: 05/06/25 18:44 05/06/25 20:43 Temperature 98.2 F 98.6 F Temperature Source Oral Pulse Rate 86 Pulse Rate [Right Radial] 86 Respiratory Rate 18 18 Blood Pressure 147/100 H Blood Pressure [Right Arm] 147/100 H Blood Pressure Mean [Right Arm] 115 Blood Pressure Source [Right Arm] Automatic Cuff Blood Pressure Position [Right Arm] Sitting 02 Sat by Pulse Oximetry 96 Oxygen Delivery Method Room Air Room Air Lab Data Lab Results 05/06/25 19:00: WBC 7.7, RBC 4.70, Hgb 15.3, Hct 44.3, MCV 94.3 H, MCH 32.6 H, MCHC 34.5, RDW 12.1, Plt Count 162, MPV 11.9 H, Neut % (Auto) 59.8, Lymph % (Auto) 32.0, [place] % (Auto) 6.5, Eos % (Auto) 0.8, Baso % (Auto) 0.4, Neut # (Auto) 4.6, Lymph # (Auto) 2.5, [place] # (Auto) 0.5, Eos # (Auto) 0.1, Baso # (Auto) 0.0, Sodium 139, Potassium 3.6, Chloride 106, Carbon Dioxide 26, Anion Gap 10.6, BUN 15, Creatinine 1.10, Estimated Creat Clear 123, Estimated GFR 79, Est GFR ( Amer) 95, Glucose 93, Calcium 9.5, Total Bilirubin 0.6, AST 49, ALT 83 H, Alkaline Phosphatase 80, Troponin I < 0.01, Total Protein 7.3, Albumin 4.2, Globulin 3.1, Albumin/Globulin Ratio 1.4, Urine Color Yellow, Urine Appearance Clear, Urine pH 6.0, Ur Specific [place] 1.025, Urine Protein Negative, Urine Glucose (UA) Negative, Urine Ketones Trace, Urine Blood Negative, Urine Nitrate Negative, Urine Bilirubin Negative, Urine Urobilinogen 0.2, Ur Leukocyte Esterase Negative, Urine RBC None, Urine WBC 3-5, Ur Squamous Epith Cells None, Urine Bacteria Trace 05/06/25 19:00 05/06/25 19:00 Orders (Tests/Meds): ED MEDICATIONS Discontinued Medications Generic Name Dose Route Start Last Admin Trade Name Freq PRN Reason Stop Dose Admin Lidocaine 1 each 05/06/25 20:13 05/06/25 20:38 Lidocaine 5% Transdermal Patch TD 05/06/25 20:14 1 each ONCE ONE Administration Methocarbamol 750 mg 05/06/25 20:14 05/06/25 20:38 Methocarbamol 500mg Tablet PO 05/06/25 20:15 750 mg ONCE ONE Administration ORDERS Category Date Time Status Shoulder XR left minimum 2 views [XR shoulder LT min 2V Exams 05/06/25 18:54 Completed ] Stat Complete Blood Count Auto Diff Stat Lab 05/06/25 19:00 Completed Comprehensive Metabolic Panel Stat Lab 05/06/25 19:00 Completed Troponin I Stat Lab 05/06/25 19:00 Completed UA [Urinalysis and Microscopic] Stat Lab 05/06/25 19:00 Completed Medical Decision Narrative: Garett Albarado is a 30y male with no significant past medical history who presents to the emergency department for 2 days of pain on the left side of his neck radiating down his arm. Patient states that the pain is only in his shoulder and in his arm. He denies any shortness of breath. He denies any cardiac history. He states that turning his neck a certain way makes the pain worse. He has been trying ibuprofen without relief. Arrival, patient is hemodynamically stable, in no acute distress, breathing comfortably on room air. Physical exam, stated above, revealed an overall well-appearing male in no respiratory distress. He has tenderness of the left trapezius muscle, anterior and posterior shoulder near the AC joint without deformity. No midline cervical spine tenderness. Public Works Director strength is 5 out of 5 bilaterally. Flexion and extension function at the elbow and shoulder equal bilaterally. Patient does have a mildly positive left-sided empty can test. No sensory deficits. Comfortable diagnosis includes, but is not limited to: Cervical radiculopathy, muscle strain, AC joint separation, fracture, ACS, rotator cuff injury, among others. The most morbid conditions were considered and workup was based on these. Patient's workup in the emergency department included: EKG, left shoulder x-ray, troponin, CBC, CMP, urinalysis X-rays interpreted by me personally. No fracture or dislocation. See radiology report for details. EKG is interpreted by me. Sinus rhythm. No ST elevation or depression. Laboratory studies are unremarkable with no leukocytosis, no anemia, troponin less than 0.01. Electrolytes and kidney function within normal limits. ALT mildly elevated at 83 but liver enzymes and bilirubin otherwise within normal limits. Urinalysis without evidence of infection. Patient was treated with 750 mg of oral Robaxin as well as lidocaine patches emergency department. Patient has a listed allergy to acetaminophen. I do feel the patient symptomatology is most consistent with cervical radiculopathy versus muscle strain. Will discharge with prescription for Robaxin and lidocaine patches and encouraged NSAIDs at home. I did encourage him to follow-up with PCP if symptoms persist. As he may need further workup for her possible rotator cuff injury precautions were given. All questions. He demonstrated understanding and was in agreement this plan. He was then discharged from the department in stable condition. Critical Care Critical Care Time Critical Care Time: No
[2025-05-06] MEDS: LIDOCAINE 5% TRANSDERMAL PATCH 1 EACH TD (20:38)
[2025-05-06] MEDS: METHOCARBAMOL 500MG TABLET 750 MG PO (20:38)
[2025-05-06 20:43] VITALS: BP 147/100; PULSE 86; RESP 18; TEMP 37; O2SAT 100
== END 2025-05-06 20:44 | disposition home or self-care (01) ==
PROVIDERS: Emergency Provider Student in an Organized Health Care Education/Training Program
DX: M54.2 Cervicalgia (principal); M25.512 Pain in left shoulder
CPT/HCPCS: 73030; 80053; 81001; 84484; 85025; 93005; 99284

== ENCOUNTER 2025-06-23 09:59 | Outpatient (CLI) | payer SELFPAY ==
--- OUTSIDE RECORDS SUMMARY | 2025-05-07 08:50 | XMS_ITS | Encounter Summary ---
[facility] Address [address] [place] [id number] Care Team Providers Care Heating And Ventilating Drafter Name Role Phone Provider, No Known Primary Care Provider Unavail able Reason for Visit * Reason Comments Shoulder Injury Neck Pain Encounter Details Date Type Department Care Team (Late st Contact Info) Description 05/07/2025 8:50 AM EST - 05/07/2025 9:40 AM EST Emergency [facility] EMERGENCY DEPARTMENT [address] [place] [id number] Rosa Hampton MD [address] [facility] [place] [address] Sprain of left shoulder, unspecified shoulder sprain type, initial encounter (Primary Dx) Discharge Disposition: Home or Self Care Social History Tobacco Use Types Packs/Day Years Used Date Smoking Tobacco: Never Assessed Abuse Screen Answer Date Recorded Feels Unsafe at Home or Work/School no 05/07/2025 Feels Threatened by Someone no 11/2024 Does Anyone Try to Keep You From Having Contact with Others or Doing Things Outside Your Home? no 05/07/2025 Physical Signs of Abuse Present no 05/07/2025 Sex and Gender Information Value Date Recorded Sex Assigned at Not on file Legal Sex Male 7:41 PM EDT Gender Identity Not on file Sexual Orientation Not on file documented as of this encounter Last Filed Vital Signs Vital Sign Reading Time Taken Comments Blood Pressure 132/100 05/07/2025 9:38 AM EST Pulse 79 05/07/2025 8:47 AM EST Temperature 36.8 C (98.3 F) 05/07/2025 8:47 AM EST Respiratory Rate 18 05/07/2025 8:47 AM EST Oxygen Saturation 95% 05/07/2025 8:47 AM EST Inhaled Oxygen Concentration - - Weight 88.5 kg (195 lb) 05/07/2025 8:47 AM EST Height 180.3 cm (5' 11 ) 05/07/2025 8:47 AM EST Body Mass Index 27.2 05/07/2025 8:47 AM EST documented in this encounter Functional Status * Safety (Adult) Question Answer Date of Assessment Author Safety [facility] 05/07/2025 9:31 AM Mala Celis RN * Calculated C-SSRS Risk Score (Lifetime/Recent) Answer Date of Assessment Author No Risk Indicated 05/07/2025 9:30 AM Mala Gutiérrez RN * [place] Suicide Severity Rating Scale (Screener/Recent Self-Report) Question Answer Date of Assessment Author 1. Wish to be (Past 1 Month) No 025 9:30 AM Mala Gutiérrez RN 2. Non-Specific Active Suici rey Thoughts (Past 1 Month) No 05/07/2025 9:30 AM Glorai Gutiérrez RN 6. Suicidal Behavior (Lifetime) No 9:30 AM Mala Gutiérrez RN * Peripheral Neurovascular (Adult) Question Answer Date of Assessment Author Peripheral Neurovascular [facility] 05/07/2025 9 :31 AM Mala Gutiérrez RN * Cardiac (Adult) Question Answer Date of Assessment Author Cardiac [facility] 05/07/2025 9:31 AM Mala Celis RN * Safety (Adult) Question Answer Date of Assessment Author Safety [facility] 05/07/2025 9:31 AM Mala Celis RN * Neuro Cognitive (Adult) Question Answer Date of Assessment Author Cognitive/Neuro/Behavioral [facility] 05/07/2025 9:31 AM Mala Gutiérrez RN * Violence Assessment Tool Risk Indicators Question Answer Date of Assessment Author Assessment Type Initial Assessment 05/07/2025 9:31 AM Mala Gutiérrez RN History of Violence 0 05/07/2025 9:31 AM ES T Mala Zheng RN Confused 0 05/07/2025 9:31 AM Mala Celis RN Irritable 0 05/07/2025 9:31 AM Mala Celis RN Boisterous 0 05/07/2025 9:31 AM Mala Celis RN Verbal Threats 0 05/07/2025 9:31 AM Mala Madison RN Physical Threats 0 05/07/2025 9:31 AM Mala Lynn RN Attacking Objects 0 05/07/2025 9:31 AM Mala Gutiérrez RN Agitated/Impulsive 0 05/07/2025 9:31 AM Mala Gutiérrez RN Paranoid/Suspicious 0 05/07/2025 9:31 AM Mala Mares RN Substance Intoxication/Withdrawal 0 05/07/2025 9:31 AM Gloria Gutiérrez RN Socially Inappropriate/Disruptive Behavior 0 05/07/2025 9:31 AM Mala Gutiérrez RN Body Language 0 05/07/2025 9:31 AM Mala Pradhan RN Violence Assessment Tool Total Score 0 05/07/2025 9:31 AM Mala Gutiérrez RN * Calculated C-SSRS Risk Score (Lifetime/Recent) Answer Date of Assessment Author No Risk Indicated 05/07/2025 9:30 AM Mala Gutiérrez RN * [place] Suicide Severity Rating Scale (Screener/Recent Self-Report) Question Answer Date of Assessment Author 1. Wish to be (Past 1 Month) No 025 9:30 AM Mala Gutiérrez RN 2. Non-Specific Active Suici rey Thoughts (Past 1 Month) No 05/07/2025 9:30 AM Gloria Gutiérrez RN 6. Suicidal Behavior (Lifetime) No 9:30 AM Mala Gutiérrez RN documented as of this encounter Mental Status * Cardiac (Adult) Question Answer Entry Date Author Cardiac [facility] 05/07/2025 9:31 AM Mala Celis RN * Safety (Adult) Question Answer Entry Date Author Safety [facility] 05/07/2025 9:31 AM Mala Celis RN * Neuro Cognitive (Adult) Question Answer Entry Date Author Cognitive/Neuro/Behavioral [facility] 05/07/2025 9:31 AM Mala Gutiérrez RN * Violence Assessment Tool Risk Indicators Question Answer Entry Date Author Assessment Type Initial Assessment 05/07/2025 9: 31 AM Mala Gutiérrez RN History of Violence 0 05/07/2025 9 :31 AM Mala Gutiérrez RN Confused 0 05/07/2025 9:31 AM Mala Gutiérrez RN Irritable 0 05/07/2025 9:31 AM Mala Gutiérrez RN Boisterous 0 05/07/2025 9:31 AM Mala Gutiérrez RN Verbal Threats 0 05/07/2025 9:31 AM Mala Gutiérrez RN Physical Threats 0 05/07/2025 9:31 AM Mala Gutiérrez RN Attacking Objects 0 05/07/2025 9:3 1 AM Mala Gutiérrez RN Agitated/Impulsive 0 05/07/2025 9: 31 AM Mala Gutiérrez RN Paranoid/Suspicious 0 05/07/2025 9 :31 AM Mala Gutiérrez RN Substance Intoxication/Withdrawal 0 05/07/2025 9:31 AM Mala Gutiérrez RN Socially Inappropriate/Disruptive Behavior 0 05/07/2025 9:31 AM Mala Gutiérrez RN Body Language 0 05/07/2025 9:31 AM Mala Gutiérrez RN Violence Assessment Tool Total Score 0 05/07/2025 9:31 AM Mala Gutiérrez RN documented in this encounter Discharge Instructions * Attachments The following attachments cannot be sent through Care Everywhere. * Shoulder Sprain (Mongolian) documented in this encounter ED Notes * Mariya Roberts PA - 05/07/2025 8:53 AM EST EMERGENCY DEPARTMENT ENCOUNTER Name: Garett Albarado Date of encounter: 05/07/2025 PCP: Provider, No Known : 1995 Room Number: 09/01 HPI: Independent Historians: Patient History of Present Illness Pt is a 30 yo male presenting to ED with complaining of left shoulder pain. PMHx significant for HTN and HLD. Pt explains he works at [employer] and several days ago accidentally over extended hisarm when it got caught in a door. He went to OSH ED yesterday and had xrays of shoulder. He was given muscle relaxer and told to f/u with workers comp. He took Motrin and the muscle relaxer this morni ng but still having pain so came to [facility] ED for 2nd opinion. He denies prior shoulder surgery. Denies numbness or weakness to arm. Denies any other injuries. He has not been using a sling. Denies any other complaints. History provided by: Patient and medical records Review of Systems Constitutional: Negative for fever. Respiratory: Negative for shortness of breath. Cardiovascular: Negative for chest pain. Musculoskeletal: Positive for arthralgias. Negative for back pain, joint swelling and neck pain. Neurological: Negative for dizziness, syncope, weakness, numbness and headaches. PAST MEDICAL HISTORY No past medical history on file. PAST SURGICAL HISTORY No past surgical history on file. FAMILY HISTORY No family history on file. SOCIAL HISTORY Social History Socioeconomic History Marital status: ALLERGIES Allergies Allergen Reactions Percocet [Oxycodone-Acetaminophen] Hives PHYSICAL EXAM I have reviewed the triage vital signs and nursing notes. ED Triage Vitals [05/07/25 0847] Temp Heart Rate Resp BP SpO2 98.3 ??F (36.8 ??C) 79 18 (!) 143/118 95 % Temp src Heart Rate Source Patient Position BP Location FiO2 (%) Oral Monitor Sitting Left arm -- Physical Exam Vitals and nursing note reviewed. Constitutional: General: He is not in acute distress. HENT: Head: Atraumatic. Nose: Nose normal. Eyes: Conjunctiva/sclera: Conjunctivae normal. Cardiovascular: Rate and Rhythm: Normal rate. Pulses: Normal pulses. Pulmonary: Effort: Pulmonary effort is normal. No respiratory distress. Musculoskeletal: General: Normal range of motion. Left shoulder: Tenderness present. No swelling or deformity. Normal range of motion. Normal strength. Normal pulse. Cervical back: Normal range of motion and neck supple. Skin: General: Skin is warm. Capillary Refill: Capillary refill takes less than 2 seconds. Neurological: General: No focal deficit present. Mental Status: He is alert and oriented to person, place, and time. Psychiatric: Mood and Affect: Mood normal. Behavior: Behavior normal. Results LAB RESULTS No results found for this visit on 05/07/25. RADIOLOGY No ED radiology results for this encounter. No orders to display ORDERS PLACED DURING THIS VISIT: Orders Placed This Encounter Procedures [facility] 03. Shoulder Immobilizer/Sling & Swathe ([id number]); Left MEDICATIONS GIVEN IN ER Medications - No data to display PROCEDURES Procedures PROGRESS, DATA ANALYSIS, CONSULTS, AND MEDICAL DECISION MAKING All labs, radiology studies, and EKG's have been independently viewed and interpreted by me. Discussion below represents my analysis of pertinent findings related to patient's condition, differentialdiagnosis, treatment plan and final disposition. Medical Decision Making Pt is a 30 yo female presenting to ED with complaints of shoulder pain. I had a discussion with thepatient / family regarding ED course, diagnosis, diagnostic results and treatment plan including medications and admission / discharge. Discussed if new or worse symptoms / concerns to return to ED for further evaluation. Discussed need for close follow up with PCP / specialists. Problems Addressed: Sprain of left shoulder, unspecified shoulder sprain type, initial encounter: acute illness or injury Amount and/or Complexity of Data Reviewed Independent Historian: parent External Data Reviewed: notes. Details: Reviewed previous non ED visits including prior labs, imaging, available notes, medications, allergies and surgical hx. 09/2024 PCP f/u on HTN and HLD My differential diagnosis includes but is not limited to fracture, sprain, contusion, rotator cuff injury, dislocation . ED Course as of 05/07/25 1554 Vita May 07, 2025 0905 I personally reviewed and interpreted vitals. [RT] 0905 BP(!): 143/118 Noted elevated BP [RT] 0906 Patient had xrays and EKG yesterday at OSH ED and reports normal. He came to [facility] ED for 2nd opinion and requesting MRI. Explained to patient unable to obtain MRI of shoulder in ED and he needs to f/u with [employer] or his companies workers comp. He took Motrin and muscle relaxer this morning which he reports did not provide relief. Offered shoulder sling. [RT] ED Course User Index [RT] Mariya Roberts PA Admission was considered but after careful review of the patient's presentation, physical examination, diagnostic results, and response to treatment the patient appears appropriate for discharge withoutpatient follow-up. OF 15:54 EST VITALS: BP - 132/100 HR - 79 TEMP - 98.3 ??F (36.8 ??C) (Oral) O2 SATS - 95% DIAGNOSIS Final diagnoses: Sprain of left shoulder, unspecified shoulder sprain type, initial encounter DISPOSITION ED Disposition ED Disposition Discharge Condition Stable Comment -- Follow-up Information Schedule an appointment as soon as possible for a visit with [facility]. Specialty: Occupational Therapy Contact information: [address] [facility] [phone] Additional information: Please follow up. Contact information: Workers Comp through your work Your medication list as of May 07, 2025 9:10 AM You have not been prescribed any medications. Please note that portions of this note were completed with a voice recognition program. Note Disclaimer: At [facility], we believe that sharing information builds trust and better relationships. You are receiving this note because you recently visited [facility]. It is possible you will see health information before a provider has talked with you about it. This kind of information can be easy to misunderstand. To help you fully understand what it means for your health, we urge you to discuss this note with your provider. Mariya Roberts PA 05/07/25 1554 Cosigned by Rosa Hampton MD at 05/07/2025 6:59 PM EST Associated attestation - Rosa Hampton MD - 05/07/2025 6:59 PM EST SUPERVISE: For this patient encounter, I reviewed the APC's documentation, treatment plan, and medical decision making. Rosa Hampton MD 05/07/2025 18:59 EST documented in this encounter Plan of Treatment Not on file documented as of this encounter Visit Diagnoses Diagnosis Sprain of left shoulder, unspecified shoulder sprain type, initial encounter- Primary documented in this encounter Care Teams Heating And Ventilating Drafter Relationship Specialty Start Date End Date Provider, [place] [address] PCP - General 04/23/25 documented as of this encounter
[2025-06-23 20:07] LABS: Coronavirus 19, PCR Not Detected (NotDetected); Influenza B, PCR Not Detected (NotDetected)
[2025-06-24 04:35] LABS: Influenza A, PCR Detected (NotDetected)
--- OUTSIDE RECORDS SUMMARY | 2025-06-26 10:03 | XMS_ITS | Encounter Summary ---
Author Organization [facility] Address [address] [place] [address] Care Team Providers Care Transfer Knitter Name Role Phone Provider, No Known Primary Care Provider Unavail able Encounter Details Date Type Department Care Team (Latest Contact Info) Description 05/07/2025 Travel Social History Tobacco Use Types Packs/Day [...] on file documented as of this encounter Plan of Treatment Not on file documented as of this encounter Visit Diagnoses Not on filedocumented in this encounter Care Teams Transfer Knitter Relationship Specialty Start Date End Date Provider, [place] [address] PCP - General 04/23/25 documented as of this encounter
--- OUTSIDE RECORDS SUMMARY | 2025-06-26 10:03 | XMS_ITS | Clinical Summary ---
Author Organization [facility] Address [address] [place] [id number] Care Team Providers Care Pet Care Assistant Name Role Phone Provider, No Known Primary Care Provider Unavail able Allergies Active Allergy Reactions Criticality Noted Date Comments Oxycodone-Acetaminophen Hives 04/23/2025 Medications No known medications Encounters Date Type Department Care Team Description 05/07/2025 8:50 AM EST - 05/07/2025 9:40 AM EST Emergency [facility] [address] [place] [id number] Rosa Hampton MD Sprain of left shoulder, unspecified shoulder sprain type, initial encounter (Primary Dx) Discharge Disposition: Home or Self Care 05/07/2025 Travel 04/23/2025 7:44 PM EDT - 04/23/2025 10:33 PM EDT Emergency [facility] [address] [place] [phone] Ottoniel Nava MD Right testicular pain (Primary [...] Mass Index 27.2 05/07/2025 8:47 AM EST Plan of Treatment Health Maintenance Due Date Last Done Comments ANNUAL PHYSICAL 1995 HEPATITIS C SCREENING 1995 TDAP/TD VACCINES (1 - Tdap) 08/16/2022 08/15/2022 INFLUENZA VACCINE 01/30/2025 Pneumococcal Vaccine 0-49 Aged Out No longer [...] MD 04/23/2025 9:36 PM EDT Workstation ID: [id number] Narrative 04/23/2025 9:36 PM EDT US SCROTUM [...] MD 04/23/2025 9:36 PM EDT Workstation ID: [id number] Ottoniel Nava MD [facility] US ORDERABLES Final Resu lt * Urinalysis With Microscopic If Indicated (No Culture) - Urine, Clean Catch (04/23/2025 9:10 PM EDT) Color, UA Yellow Yellow, Straw 04/23/2025 9:29 PM EDT [facility] Appearance, UA Clear Clear 04/23/2025 9:29 PM EDT [facility] pH, UA 5.5 5.0 - 8.0 04/23/2025 9:29 PM EDT [facility] Specific [place], UA 1.020 1.005 - 1.030 04/23/2025 9:29 PM EDT [facility] Glucose, UA Negative Negative 04/23/2025 9:29 PM EDT [facility] Ketones, UA Negative Negative 04/23/2025 9:29 PM EDT [facility] Bilirubin, UA Negative Negative 04/23/2025 9:29 PM EDT [facility] Blood, UA Negative Negative 04/23/2025 9:29 PM EDT [facility] Protein, UA Negative Negative 04/23/2025 9:29 PM EDT [facility] Leuk Esterase, UA Negative Negative 04/23/2025 9:29 PM EDT [facility] Nitrite, UA Negative Negative 04/23/2025 9:29 PM EDT [facility] Urobilinogen, UA 0.2 E.U./dL 0.2 - 1.0 E.U./dL 04/23/2025 9:29 PM EDT [facility] Urine Urine specimen obtained by clean catch procedure / Unknown Collection / Unknown 04/23/2025 9:10 PM EDT 04/23/2025 9:22 PM EDT [facility] - 04/23/2025 9:29 PM EDT Urine microscopic not indicated. Ottoniel Nava MD URINE ORDERABLES Final Resul t [facility]
[address] [place] [address], * (ABNORMAL) CBC Auto Differential (04/23/2025 8:20 PM EDT) WBC 6.74 3.40 - 10.80 10*3/mm3 04/23/2025 8:33 PM EDT [facility] RBC 4.75 4.14 - 5.80 10*6/mm3 04/23/2025 8:33 PM EDT [facility] Hemoglobin 15.4 13.0 - 17.7 g/dL 04/23/2025 8:33 PM EDT [facility] Hematocrit 44.5 37.5 - 51.0 % 04/23/2025 8:33 PM EDT [facility] MCV 93.7 79.0 - 97.0 fL 04/23/2025 8:33 PM EDT [facility] MCH 32.4 26.6 - 33.0 pg 04/23/2025 8:33 PM EDT [facility] MCHC 34.6 31.5 - 35.7 g/dL 04/23/2025 8:33 PM EDT [facility] RDW 12.2(L) 12.3 - 15.4 % 04/23/2025 8:33 PM EDT [facility] RDW-SD 42.4 37.0 - 54.0 fl 04/23/2025 8:33 PM EDT [facility] MPV 11.8 6.0 - 12.0 fL 04/23/2025 8:33 PM EDT [facility] Platelets 143 140 - 450 10*3/mm3 04/23/2025 8:33 PM EDT [facility] Neutrophil % 58.8 42.7 - 76.0 % 04/23/2025 8:33 PM EDT [facility] Lymphocyte % 34.3 19.6 - 45.3 % 04/23/2025 8:33 PM EDT [facility] Monocyte % 5.2 5.0 - 12.0 % 04/23/2025 8:33 PM EDT [facility] Eosinophil % 0.7 0.3 - 6.2 % 04/23/2025 8:33 PM EDT [facility] Basophil % 0.4 0.0 - 1.5 % 04/23/2025 8:33 PM EDT [facility] Immature Grans % 0.6(H) 0.0 - 0.5 % 04/23/2025 8:33 PM EDT [facility] Neutrophils, Absolute 3.96 1.70 - 7.00 10*3/mm3 04/23/2025 8:33 PM EDT [facility] Lymphocytes, Absolute 2.31 0.70 - 3.10 10*3/mm3 04/23/2025 8:33 PM EDT [facility] Monocytes, Absolute 0.35 0.10 - 0.90 10*3/mm3 04/23/2025 8:33 PM EDT [facility] Eosinophils, Absolute 0.05 0.00 - 0.40 10*3/mm3 04/23/2025 8:33 PM EDT [facility] Basophils, Absolute 0.03 0.00 - 0.20 10*3/mm3 04/23/2025 8:33 PM EDT [facility] Immature Grans, Absolute 0.04 0.00 - 0.05 10*3/mm3 04/23/2025 8:33 PM EDT [facility] nRBC 0.0 0.0 - 0.2 /100 WBC 04/23/2025 8:33 PM EDT [facility] Blood Venipuncture / Unknown 04/23/2025 8:20 PM EDT 04/23/2025 8:30 PM EDT us Ottoniel Nava MD LAB BLOOD ORDERABLES Final R esult [facility]
[address] [place] [address], * (ABNORMAL) Comprehensive Metabolic Panel (04/23/2025 8:20 PM EDT) [facility] Signature Glucose 100(H) 65 - 99 mg/dL 04/23/2025 8:57 PM EDT [facility] BUN 11.6 6.0 - 20.0 mg/dL 04/23/2025 8:57 PM EDT [facility] Creatinine 0.99 0.76 - 1.27 mg/dL 04/23/2025 8:57 PM EDT [facility] Sodium 138 136 - 145 mmol/L 04/23/2025 8:57 PM EDT [facility] Potassium 4.0 3.5 - 5.2 mmol/L 04/23/2025 8:57 PM EDT [facility] Comment:Specimen hemolyzed. Result may be falsely elevated. Chloride 103 98 - 107 mmol/L 04/23/2025 8:57 PM EDT [facility] CO2 25.1 22.0 - 29.0 mmol/L 04/23/2025 8:57 PM EDT [facility] Calcium 9.1 8.6 - 10.5 mg/dL 04/23/2025 8:57 PM EDT [facility] Total Protein 6.3 6.0 - 8.5 g/dL 04/23/2025 8:57 PM EDT [facility] Albumin 4.1 3.5 - 5.2 g/dL 04/23/2025 8:57 PM EDT [facility] ALT (SGPT) 58(H) 1 - 41 U/L 04/23/2025 8:57 PM EDT [facility] AST (SGOT) 41(H) 1 - 40 U/L 04/23/2025 8:57 PM T [facility] Comment:Specimen hemolyzed. Result may be falsely elevated. Alkaline Phosphatase 78 39 - 117 U/L 04/23/2025 8:57 PM EDT [facility] Total Bilirubin 0.4 0.0 - 1.2 mg/dL 04/23/2025 8:57 PM EDT [facility] Globulin 2.2 gm/dL 04/23/2025 8:57 PM EDT [facility] Comment:Calculated Result A/G Ratio 1.9 g/dL 04/23/2025 8:57 PM EDT [facility] BUN/Creatinine Ratio 11.7 7.0 - 25.0 04/23/2025 8:57 PM EDT [facility] Anion Gap 9.9 5.0 - 15.0 mmol/L 04/23/2025 8:57 PM EDT [facility] eGFR 105.1 >60.0 mL/min/1.7 3 04/23/2025 8:57 PM EDT [facility] Blood Venipuncture / Unknown 04/23/2025 8:20 PM EDT 04/23/2025 8:30 PM EDT Narrative [facility] - 04/23/2025 8:57 PM EDT [...] MD LAB BLOOD ORDERABLES Final R esult [facility]
[address] [place] [address], from Last 3 Months Insurance [facility] PPO [place] Care Teams Pet Care Assistant Relationship Specialty Start Date End Date Provider, No Known [facility] [place] [address] PCP - General 04/23/25
--- OUTSIDE RECORDS SUMMARY | 2025-06-26 10:03 | XMS_ITS | Patient Health Record ---
Author Organization [facility] Address [address] [address] Care Team Providers Care Chemical Treatment Operator Name Role Phone Carlie Cast CNP Primary Care Provider Unavai lable [id number], Migration Provider Unavailable Unavai lable Allergies No Known Allergies Reason For Referral No Information Problems Problem Type SNOMED Code ICD Code Onset Dates Problem Status W/U Status Risk Notes Problem Fatty liver (010503803) Fatty (change of) liver, not elsewhere classified (K76.0) 03/04/2019 Active confirmed Problem Laboratory test result abnormal (296846919) Abnormal levels of other serum enzymes (R74.8) 03/04/2019 Active confirmed Plan Of Treatment No Information Insurance Providers Payer Name Payer Address Payer Phone Subscriber Number Group Number Insured Name Patient Relationship to Insured Coverage Start Date Coverage End Date [facility] [address] [address] [place] [phone] [id number] LA[employer] [place]LE Self - patient is the insured
== END 2025-06-23 23:59 | disposition home or self-care (01) ==
LOC: LAB.DROPOF 06-26 10:02
PROVIDERS: Visit Provider Student in an Organized Health Care Education/Training Program
DX: J06.9 Acute upper respiratory infection, unspecified (principal)
CPT/HCPCS: 87631